=== PATIENT | female | born 1965 | race Caucasian/White ===

== ENCOUNTER 2023-06-15 11:22 | Day surgery (SDC) | payer MEDICAID ==
[~2023-06-15] VITALS: Ht 157.5 cm; Wt 46.4 kg
[2023-06-15] MEDS ORDERED: PROG100C11 PO (11:50)
[2023-06-15] MEDS ORDERED: CYCL-1 PO (11:50)
[2023-06-15] MEDS ORDERED: PANT40TA54 PO (11:50)
[2023-06-15] MEDS ORDERED: OMEG100037 PO (11:51)
[2023-06-15] MEDS ORDERED: HYDR-3973 PO (11:51)
[2023-06-15] MEDS ORDERED: HYDR-3686 PO (11:51)
[2023-06-15] MEDS ORDERED: ESTR1TAB28 PO (11:51)
[2023-06-15 12:27] VITALS: BP 130/95; PULSE 76; RESP 16; TEMP 98.1; O2SAT 98
[2023-06-15 12:46] VITALS: BP 139/73; PULSE 70; RESP 16; O2SAT 98
[2023-06-15 13:00] VITALS: BP 118/75; PULSE 72; RESP 16; O2SAT 98; O2SAT 99
== END 2023-06-15 13:15 | disposition home or self-care (01) ==
LOC: SSTAY O 11:22
PROVIDERS: ATTEND Radiology Vascular & Interventional Radiology
DX: R59.0 Localized enlarged lymph nodes (principal)
CPT/HCPCS: 10005; 76942